=== PATIENT | male | born 1955 | race African-American/Black ===

== ENCOUNTER 2016-09-13 06:14 | Emergency (ER) | payer MEDICAID ==
[~2016-09-13] VITALS: Ht 182.9 cm; Wt 93.6 kg
[2016-09-13 07:28] LABS: HEMATOCRIT. 48.4 % (42.0-52.0); HEMOGLOBIN. 16.6 g/dL (14.0-18.0); MEAN CORPUSCULAR HEMOGLOBIN 34.5 pg (28.0-32.0); MEAN CORPUSCULAR VOLUME 100.8 fL (80.0-94.0); MEAN PLATELET VOLUME 8.5 fl (7.4-10.4); PLATELET 138 x1000/uL (130-400); RED BLOOD CELL COUNT 4.81 mill/uL (4.7-6.1)
[2016-09-13 07:31] LABS: COLOR URINE DARK YELLOW (YELLOW); GLUCOSE URINE NEGATIVE (NEGATIVE); KETONES URINE TRACE (NEGATIVE); LEUKOCYTE ESTERASE URINE 2+ (NEGATIVE); NITRITE URINE NEGATIVE (NEGATIVE); OCCULT BLOOD URINE NEGATIVE (NEGATIVE); PH URINE 6.5 (4.5-8.0); PROTEIN URINE NEGATIVE (NEGATIVE); SPECIFIC GRAVITY URINE 1.012 (1.005-1.030)
[2016-09-13 07:32] LABS: CLARITY URINE SL HAZY (CLEAR)
[2016-09-13 07:38] LABS: CARBON DIOXIDE 28 mEq/L (21-32); CHLORIDE 104 mEq/L (98-107)
[2016-09-13 08:16] VITALS: BP 137/73
[2016-09-13 09:04] LABS: PLATELET ESTIMATE NORMAL
== END 2016-09-13 09:21 | disposition home or self-care (01) ==
LOC: ER 06:15
DX: N39.0 Urinary tract infection, site not specified (principal); I10 Essential (primary) hypertension; F17.210 Nicotine dependence, cigarettes, uncomplicated; F12.90 Cannabis use, unspecified, uncomplicated; Z90.49 Acquired absence of other specified parts of digestive tract; Z88.0 Allergy status to penicillin; Z90.89 Acquired absence of other organs
CPT/HCPCS: 36415; 80053; 81001; 83690; 85025; 99284; Z7610

== ENCOUNTER 2017-04-26 22:00 | Emergency (ER) | payer MEDICAID ==
[~2017-04-26] VITALS: Ht 182.9 cm; Wt 86.0 kg
[2017-04-26 22:08] VITALS: BP 133/72
== END 2017-04-27 07:39 | disposition left against medical advice (07) ==
LOC: ER 22:00
DX: S61.012A Laceration without foreign body of left thumb without damage to nail, initial encounter (principal); Z53.21 Procedure and treatment not carried out due to patient leaving prior to being seen by health care provider; X58.XXXA Exposure to other specified factors, initial encounter; Y93.89 Activity, other specified; Y92.89 Other specified places as the place of occurrence of the external cause; Y99.8 Other external cause status

== ENCOUNTER 2017-12-05 23:57 | Emergency (ER) | payer MEDICAID ==
[~2017-12-05] VITALS: Ht 175.3 cm; Wt 77.0 kg
[2017-12-06] MEDS ORDERED: KETOROLAC 60MG/2ML VIAL IM ONE (01:00)
[2017-12-06 01:34] VITALS: BP 108/60
== END 2017-12-06 01:36 | disposition home or self-care (01) ==
LOC: ER 23:57
DX: S09.8XXA Other specified injuries of head, initial encounter (principal); I10 Essential (primary) hypertension; F12.10 Cannabis abuse, uncomplicated; Z90.89 Acquired absence of other organs; Y08.89XA Assault by other specified means, initial encounter; Y93.89 Activity, other specified; Y92.89 Other specified places as the place of occurrence of the external cause; Y99.8 Other external cause status
CPT/HCPCS: 96372; 99283; J1885; Z7610